=== PATIENT | male | born 1955 | race Caucasian/White ===

== ENCOUNTER 2021-09-25 16:42 | Emergency (ER) | payer OTHER, SELFPAY ==
[2021-09-25] VITALS (8 sets, daily range): BP systolic 105–128; BP diastolic 61–71; PULSE 57–74; RESP 16–27; TEMP 36.2–38.7; O2SAT 86–97; BMI 27.2
--- NOTE | 2021-09-25 17:15 | EDS_ITS ---
HPI History of Present Illness Chief Complaint: Shortness of Breath Informant: patient and family Onset/Context/Timing Onset: Days Context: gradual Timing: Continuous Current Severity: Mild Maximum Severity: Mild Associated Symptoms cough Chest Pain: Positive for None Narrative Narrative: 65-year-old male history of CAD with one cardiac stent also on blood pressure and cholesterol meds. Tested positive for Covid on 09/14 has had symptoms since at least the past 12 to 15 days. He has a nonproductive cough. Fever chills and body aches. No hemoptysis. No chest pain. No history of prior DVT or PE. No recent travel, surgery or immobilization. No calf pain or swelling. Pulse ox is in the 70s and 80s without oxygen. On 3 L he is above 90%. PE Risk Factors: Negative for Cancer, OCP + Smoking + > 35, Prior DVT or PE, Recent immobilization, Recent surgery and Recent travel Prior similar symptoms: No Recent Illness/Hospitalization: No PFSH PFSH Medical History Myocardial infarct Home Medications acetaminophen 1,000 mg PO BID 09/25/21 [History Last Taken 09/25/21] aspirin [Aspir-81] 81 mg PO DAILY 09/25/21 [History Last Taken 09/25/21] atorvastatin 40 mg PO DAILY 09/25/21 [History Last Taken 09/25/21] dexamethasone [Decadron] 6 mg PO DAILY 10 Days #10 tab 09/25/21 [Rx Last Taken Unknown] metoprolol tartrate 12.5 mg PO BID 09/25/21 [History Last Taken 09/25/21] Allergy/AdvReac Type Severity Reaction Status Date / Time No Known Allergies Allergy Verified 09/25/21 16:44 Social History Smoking Status: Never smoker ROS ROS ED ROS Narrative Cough, fever, body aches and chills. Short of breath. Review of Systems ROS Unobtainable: Denies due to encephalopathy Constitutional Constitutional ED: Reports chills and fever(s) Eyes Eyes: Denies change in vision ENT ENT ED: Denies ear pain, rhinorrhea or sore throat Cardiovascular Cardiovascular: Denies chest pain Respiratory/Chest Respiratory/Chest: Reports cough and dyspnea; Denies sputum Gastrointestinal Gastrointestinal: Denies abdominal pain, diarrhea, nausea or vomiting Genitourinary Genitourinary ED: Denies dysuria Musculoskeletal Musculoskeletal: Reports myalgias Integumentary Denies rash Neurologic Neurologic: Denies headache(s) Psychiatric Psychiatric: Denies depression Endocrine Endocrinology: Denies polyuria Hematologic/Lymphatic Hematologic/Lymphatic: Denies easy bruising Allergic/Immunologic Allergic/Immunologic ED: Denies urticaria EXAM Physical Exam Narrative Exam Narrative: C5-year-old male vital signs stable except his pulse ox 86% on room air consistent with hypoxia. On 4 L 92%. H EENT exam unremarkable atraumatic. Dry mucous memories. Neck nontender no JVD no lymphadenopathy. Lungs clear to auscultation bilaterally. Heart regular rhythm rate about 75 no murmur. Abdomen soft nontender normal bowel sounds no peritoneal signs. Moving all 4 extremities. Calves nontender without edema or cords. Neurologically is awake and alert with no focal motor deficits. Const Vital Signs: 09/25/21 16:43 09/25/21 16:45 09/25/21 17:15 Temperature 97.2 F L 97.2 F L Temperature Source Temporal Temporal Pulse Rate 74 68 Respiratory Rate 22 H 21 H Respiratory Effort Respiratory Depth Respiratory Pattern Blood Pressure 116/64 122/66 H Blood Pressure Mean 81 84 Pulse Ox 86 92 95 Oxygen Delivery Method Room Air Nasal Cannula Nasal Cannula Oxygen Flow Rate (L/min) 4 3 Fraction of Inspired Oxygen (FIO2) 09/25/21 17:16 09/25/21 18:46 09/25/21 19:25 Temperature 101.6 F H Temperature Source Temporal Pulse Rate 69 72 Respiratory Rate 18 24 H 27 H Respiratory Effort Short of Breath Respiratory Depth Deep Respiratory Pattern Tachypnea Blood Pressure 128/71 H 113/71 Blood Pressure Mean 90 85 Pulse Ox 95 97 92 Oxygen Delivery Method Nasal Cannula Nasal Cannula Nasal Cannula Oxygen Flow Rate (L/min) 3 3 3 Fraction of Inspired Oxygen (FIO2) 95 Positive well nourished and well developed; Negative for obese, cachectic, contractures or unkempt General Appearance ED: well developed and NAD; Negative for unkempt, cachectic, contractures or pallor Nutritional Appearance: Negative for cachectic or obese HEENT Reports dry mucous membranes; Denies moist mucous membranes atraumatic; Negative for trauma or tenderness Mouth ED: Yes dry mucous membranes Mouth: dry mucous membranes Eyes PERRL and EOMs intact bilaterally Neck no lymphadenopathy, supple, no meningeal signs and no JVD General: Negative for tenderness Resp normal respiratory effort and clear to auscultation bilaterally Auscultation: Negative for rales, rhonchi or wheezes Cardio regular rate, regular rhythm, S1 normal heart sound, S2 normal heart sound and no murmurs GI non-tender, non-distended and no masses Auscultation: normoactive bowel sounds Palpation: soft; Negative for tender or guarding Back/Spine no CVA tenderness and normal to inspection Extremity normal to inspection General Extremety ED: Negative for edema or tenderness General Extremity: Negative for edema Neuro oriented x3 Sensorium / Orientation: oriented to person and oriented to place; Negative for orientation impaired Motor Exam: strength 5/5 throughout Psych mental status grossly normal Appearance: Negative for unkempt Thought Process: normal thought process Skin no wounds General Skin Exam: Negative for jaundice or pallor Lesions: no lesions Rashes: no rashes MDM MDM MDM Narrative Medical decision making narrative: 55-year-old male Covid symptoms for 12 to 15 days. He is unvaccinated. He has been on no therapy. He has received no steroids. He has been on no monoclonal antibody therapy. He is not seen any medical personnel before today. Repeat exam patient is doing well at 8:10 PM. Clinically looks better on the oxygen. He is day 12 through 15 he is not a candidate for monoclonal antibodies to both the timeline and his hypoxia. He and his family member are comfortable with him being discharged home on oxygen which I will have our social media content specialist mayco karla to get that set up. I will start him on daily Decadron. He knows to return if worse. Follow-up with his primary to ensure he is improving. Quarantine. Lab Data Attestation: I reviewed the patient's lab results. Lab results narrative: CBC shows a white count of 5. Hemoglobin 14. Electrolytes show sodium 132 gap of 8 normal BUN and creatinine glucose 116. Labs: Laboratory Results - last 24 hr 09/25/21 09/25/21 17:35 17:35 WBC 5.5 RBC 4.77 Hgb 14.2 Hct 42.1 MCV 88.3 MCH 29.8 MCHC 33.7 RDW Std Deviation 42.3 RDW Coeff of Jimi 13.0 Plt Count 281 MPV 10.8 Immature Gran % (Auto) 0.400 Neut % (Auto) 77.2 H Lymph % (Auto) 15.3 L [place] % (Auto) 6.9 Eos % (Auto) 0.0 Baso % (Auto) 0.2 Absolute Neuts (auto) 4.3 Absolute Lymphs (auto) 0.85 Nucleated RBC % 0 Sodium 132 L Potassium 4.0 Chloride 102 Carbon Dioxide 22.0 Anion Gap 8 BUN 18 Creatinine 0.98 Estim Creat Clear Calc 79.66 Est GFR (MDRD) Af Amer 99 Est GFR (MDRD) Non-Af 82 BUN/Creatinine Ratio 18.3 Glucose 116 H Calcium 8.3 L Radiography Chest X-Ray - ED: 1 View, Read by ED Physician, Normal, Heart, Mediastinum, Bony Structures, Right Infiltrate and Left Infiltrate Diagnostic Testing: Clinical Impression(s) from Imaging Studies Chest X-Ray 09/25/21 17:35 IMPRESSION: 1. Mild to moderate bilateral multifocal pneumonia Electronically Signed: Kavin Mcrae MD at 18:27 EST , Service support , Tray, portable, single view interpreted by myself the radiologist is consistent with bilateral infiltrates consistent with Covid pneumonitis. Discharge Plan Triage Chief Complaint: Shortness of Breath ED Provider: Harjinder Arzate Dx/Rx/DC Orders Clinical Impression: COVID-19, Hypoxia Instructions: Human Coronaviruses Prescriptions: New dexamethasone [Decadron] 6 mg tablet 6 mg PO DAILY 10 Days Qty: 10 RF: 0 No Action atorvastatin 40 mg tablet 40 mg PO DAILY RF: 0 acetaminophen 500 mg Tablet 1,000 mg PO BID RF: 0 metoprolol tartrate 25 mg tablet 12.5 mg PO BID RF: 0 aspirin [Aspir-81] 81 mg Tablet,Delayed Release (Dr/Ec) 81 mg PO DAILY RF: 0 Primary Care Provider: Alex Rivero NP Referrals: Alex Rivero [facility], [facility] [Primary Care Provider] - Activity Restrictions/Additional Instructions: Plenty of fluids and rest. Quarantine next 10 days. Any family members feeling ill should get tested for Covid also. Alternate Tylenol and Motrin for body aches and fever. Daily Decadron for the Covid inflammation in your lungs. Return if feeling worse. Follow-up with your doctor to ensure you are improving. Home oxygen all the time to get better. Disposition Disposition: Home, Self Care
--- NOTE | 2021-09-25 17:35 | RAD_ITS ---
STUDY: X-RAY CHEST REASON FOR EXAM: Male, 65 years old. covid TECHNIQUE: Single AP portable view of the chest. COMPARISON: None. FINDINGS: Moderate patchy consolidation is present in the right upper lobe as well as the lingula of the left upper lobe and throughout the left lower lobe. Mild patchy consolidation is present in the right lower lobe with a trace pleural effusion. There is no demonstrated pleural abnormality. Normal size heart. Normal mediastinum and graciela. Normal visualized pulmonary arteries. Normal visualized aortic arch and descending thoracic aorta. Normal visualized thoracic spine. Normal visualized ribs, clavicles, and shoulders. There is no demonstrated abnormality of the visualized soft tissue structures of the upper abdomen. RAD/Chest 1 View (Portable) IMPRESSION: 1. Mild to moderate bilateral multifocal pneumonia Electronically Signed: Kavin Mcrae MD at 18:27 EST , Service support ,
[2021-09-25] MEDS: dexAMETHasone 10 MG/ML Vial IV (17:44)
[2021-09-25] MEDS: 0.9% Normal Saline 1,000 ML 999 ML IV (17:44)
[2021-09-25 17:46] LABS: Absolute Lymphocyte Count 0.85 X10^3/uL (0.83-4.51); Absolute Neutrophil Count 4.3 X10^3/uL (2.0-7.7); Basophil# 0.01 X10^3/uL; Basophil% 0.2 % (0-1); Hematocrit 42.1 % (40-54); Hemoglobin 14.2 g/dL (13.0-16.5); Lymphocyte # 0.85 X10^3/ul (0.83-4.51); Lymphocyte % 15.3 % (19-41); Mean Corp Hgb Conc 33.7 g/dL (32-36); Mean Corpuscular Hgb 29.8 pg (27.0-32.0); Mean Corpuscular Volume 88.3 fL (80-94); Mean Platelet Vol. 10.8 fl (6.2-12.0); Monocyte# 0.38 X10^3/uL; Monocyte% 6.9 % (0-10); NRBC Flagged by Analyzer 0 % (0-5); Neutrophil # 4.28 X10^3/uL (2.7-7.7); Neutrophil % 77.2 % (47-70); Platelet Count 281 K/mm3 (150-450); RBC Distribution Width SD 42.3 fl (35.1-43.9); Red Blood Count 4.77 M/mm3 (4.6-6.2); White Blood Count 5.5 K/mm3 (4.4-11.0)
[2021-09-25 18:00] LABS: Anion Gap 8 (5-15); BUN 18 mg/dL (7-18); BUN/Creat Ratio 18.3 RATIO (10-20); Calcium,Total 8.3 mg/dL (8.5-10.1); Chloride 102 mmol/L (98-107); Creatinine, Serum 0.98 mg/dL (0.70-1.30); EST Glomerular Filtration Rate 82 mL/min (>60); Est Glom Filt Rate - Afr Amer 99 mL/min (>60); Estimated Creatinine Clearance 79.66 ml/min; Glucose 116 mg/dL (74-106); Sodium Level 132 mmol/L (136-145)
[2021-09-25] MEDS: Acetaminophen 500 MG Tablet 1000 MG PO (18:58)
--- NOTE | 2021-09-25 20:45 | CM.ED ---
Addendum entered by Gege Gonzalez 09/25/21 22:12: FUNMI was advised by staff that since the home oxygen concentrators were not available in the past was there home oxygen concentrators available so this narrative writer called [facility] again and made referral requesting that soil conservationist [facility] call this narrative writer. Barrington from [facility] called this narrative writer. He advised that he will call family. FUNMI met with patient and patient's daughter. They advised Barrington had called and will be in at their house in 1 1/2 hours. Patient discharged home with home oxygen Gege KHANNA Addendum entered by Gege Gonzalez 09/25/21 21:02: Per [facility]'s request FUNMI faxed the discharge paperwork to [facility] fax number.FUNMI reviewed with Ashley Ruffin RN that the max that patient can go home with on home oxygen is 4L. If greater than 4L patient needs to stay inpatient. FUNMI asked MD and he was not familiar with what level of home oxygen is acceptable vs inpatient acute setting. Plan: Home with Home oxygen. Original Note: FUNMI Note Referral Source: MD Referral Reason: Home Oxygen FUNMI faxed referral to [facility]. FUNMI called [facility] and spoke to Jerica about referral. FUNMI sent email to [facility]. No further SW needs at this time. Gege KHANNA
--- NOTE | 2021-09-26 14:55 | CASEMGMT ---
JETT SANZ COVID Home O2 ED follow-up: JETT SANZ completed follow-up phone call after recent hospitalization. Patient states he is doing better. Oxygen was setup without any issues. Patient states he has been wearing oxygen. Sats around 90-91%. Patient was able to fill prescriptions without any issues and taking medication as prescribed. Patient encouraged to schedule follow-up appt.
--- NOTE | 2021-09-27 16:25 | CASEMGMT ---
JETT SANZ COVID Home O2 ED follow-up: JETT ASNZ attempted to complete call. No answer, voice message left with return contact information.
== END 2021-09-25 21:37 | disposition home or self-care (01) ==
PROVIDERS: Emergency Provider Emergency Medicine; PCP Nurse Practitioner Family
DX: U07.1 COVID-19 (principal); J12.82 Pneumonia due to coronavirus disease 2019; R09.02 Hypoxemia; I25.10 Atherosclerotic heart disease of native coronary artery without angina pectoris; I25.2 Old myocardial infarction; Z95.5 Presence of coronary angioplasty implant and graft; Z79.82 Long term (current) use of aspirin; Z79.899 Other long term (current) drug therapy
CPT/HCPCS: 71045; 80048; 85025; 94760; 96361; 96374; 99284; J7030; A4216

== ENCOUNTER 2021-09-30 10:55 | Inpatient (IN) | payer OTHER, SELFPAY ==
[2021-09-30] VITALS (12 sets, daily range): BP systolic 103–119; BP diastolic 62–70; PULSE 48–69; RESP 14–28; TEMP 35.9–36.8; O2SAT 89–95; BMI 26.5; BMI 24.8
--- NOTE | 2021-09-30 11:25 | CT_ITS ---
STUDY: CTA CHEST REASON FOR EXAM: Male, 65 years old. covid 19 pulmonary embolism RADIATION DOSAGE (If Supplied By Facility): CTDIvol = ( 14.70 ) mGy, DLP = ( 556.95 ) mGycm TECHNIQUE: The examination was performed with the intravenous administration of IV 100mL Isovue-370. Post-processing of the angiographic images was performed, with multiplanar reformation and 3D reconstruction. Individualized dose optimization techniques were used for this CT. COMPARISON: 09/25/2021 FINDINGS: Normal enhancement of the main pulmonary artery and right and left pulmonary arteries. Normal enhancement of the bilateral peripheral pulmonary arteries. Multiple filling defects in segmental branches bilaterally consistent with bilateral pulmonary emboli. Normal thoracic aorta and visualized great vessels. There is no demonstrated aortic dissection. Normal heart and pericardium. Normal mediastinum. Normal hilar regions. Normal visualized trachea and bronchi. The lungs are well expanded. Bilateral patchy groundglass opacities consistent with subsegmental atelectasis or pneumonitis. Normal pleura. Normal chest wall structures. Normal osseous structures. Normal visualized upper abdomen. CT/CTA Chest W/WO Contrast IMPRESSION: 1. Positive for bilateral segmental pulmonary emboli. 2. Moderate bilateral subsegmental atelectasis or pneumonitis. Commonly reported imaging features of Covid 19 pneumonia are present. Other processes such as influenza pneumonia and organizing pneumonia as can be seen in drug toxicity and connective tissue disease can cause a similar imaging pattern. Electronically Signed: Alex Herring MD at 13:08 EST Tel , Service support ,
--- NOTE | 2021-09-30 11:26 | EDS_ITS ---
HPI History of Present Illness Chief Complaint: Shortness of Breath Informant: patient and family Narrative Narrative: 65-year-old male presenting to the emergency department with dyspnea. Patient became ill with COVID-19 on 12 September. He was seen in the emergency room on the . At that time he was started on home oxygen of 4 L and given Decadron. Family notes that his mental status is significantly improved over the past few days. Unfortunately his oxygen saturations are dropping into the 70s with any type of movement around the house. He denies any chest pain. Notes history of coronary artery disease. Not Covid vaccinated. [facility] Medical History (Updated 09/30/21 @ 14:10 by Ed MCKEON) COVID HTN (hypertension) Myocardial infarct Home Medications acetaminophen 1,000 mg PO BID 09/25/21 [History Last Taken 09/25/21] aspirin [Aspir-81] 81 mg PO DAILY 09/25/21 [History Last Taken 09/25/21] atorvastatin 40 mg PO DAILY 09/25/21 [History Last Taken 09/25/21] dexamethasone [Decadron] 6 mg PO DAILY 10 Days #10 tab 09/25/21 [Rx Last Taken Unknown] metoprolol tartrate 12.5 mg PO BID 09/25/21 [History Last Taken 09/25/21] ibuprofen [Motrin] 600 mg PO BID PRN 09/30/21 [History Last Taken Unknown] Allergy/AdvReac Type Severity Reaction Status Date / Time No Known Allergies Allergy Verified 09/30/21 10:56 Family History (Updated 09/30/21 @ 14:11 by Ed MCKEON) Father Cancer Colon cancer Mother Diabetes Heart disease Surgical History (Updated 09/30/21 @ 14:12 by Ed MCKEON) History of cardiac catheterization Social History (Updated 09/30/21 @ 14:13 by Ed MCKEON) current gender identity: male Smoking Status: Current some day smoker tobacco type: cigarettes Smoking packs per day: 1 Smoking cigarettes per day: 20.0 Years smoked: 45 Smoking pack-years: 45.00 alcohol intake: current alcohol intake frequency: 3 or more drinks per day Alcohol type: beer ROS ROS ED Constitutional Constitutional ED: Denies chills, fever(s) or weight loss Eyes Eyes: Denies change in vision or diplopia ENT ENT ED: Denies ear pain, rhinorrhea or sore throat Cardiovascular Cardiovascular: Denies chest pain, orthopnea, palpitations or racing heartbeat Respiratory/Chest Respiratory/Chest: Reports cough, dyspnea and dyspnea on exertion; Denies orthopnea Gastrointestinal Gastrointestinal: Denies abdominal pain, diarrhea, nausea or vomiting Genitourinary Genitourinary ED: Denies dysuria, hematuria or urinary frequency Musculoskeletal Musculoskeletal: Denies arthralgias or myalgias Integumentary Denies abscess or rash Neurologic Neurologic: Denies headache(s) or weakness Psychiatric Psychiatric: Denies anxiety, depression, suicidal ideation or suicidal thoughts Endocrine Endocrinology: Denies polydipsia, polyphagia or polyuria Allergic/Immunologic Allergic/Immunologic ED: Denies mouth swelling, tongue swelling or urticaria EXAM Physical Exam Const Vital Signs: 09/30/21 10:56 09/30/21 11:08 09/30/21 11:09 Temperature 96.6 F L Temperature Source Temporal Pulse Rate 53 L 52 L Respiratory Rate 14 28 H Blood Pressure 112/70 Blood Pressure Mean 84 Pulse Ox 89 89 93 Oxygen Delivery Method Nasal Cannula Nasal Cannula Nasal Cannula Oxygen Flow Rate (L/min) 4 4 5 09/30/21 11:31 09/30/21 11:39 09/30/21 13:13 Temperature 96.6 F L Temperature Source Temporal Pulse Rate 51 L 48 L Respiratory Rate 26 H 24 H Blood Pressure 103/67 114/66 Blood Pressure Mean 79 82 Pulse Ox 93 92 Oxygen Delivery Method Nasal Cannula Nasal Cannula Nasal Cannula Oxygen Flow Rate (L/min) 5 5 5 Positive well nourished and well developed; Negative for obese General Appearance ED: well developed Nutritional Appearance: Negative for obese HEENT Reports normocephalic, head/scalp atraumatic, TM's clear and moist mucous membranes Negative for trauma Tympanic Membrane ED: Yes TM's clear Eyes PERRL and EOMs intact bilaterally Neck no lymphadenopathy, supple and no JVD Resp clear to auscultation bilaterally Resp Narrative: Patient is tachypneic Cardio regular rate and no murmurs Rate: bradycardia GI normal to inspection, nondistended, normoactive bowel sounds and non-tender Palpation: soft Back/Spine no CVA tenderness and normal ROM Extremity normal to inspection General Extremety ED: Negative for edema General Extremity: Negative for edema Neuro oriented x3 and CN's II-XII intact bilaterally Sensorium / Orientation: alert Motor Exam: strength 5/5 throughout Psych mental status grossly normal Mood & Affect: Negative for depressed or tearful Skin no rashes or lesions noted and no wounds MDM MDM MDM Narrative Medical decision making narrative: Basic blood work was obtained which shows elevation of his liver enzymes. Patient does drink quite a bit of alcohol and family states that they think that he probably had some withdrawal over the past week since he has not been drinking. His CTA of his chest is positive for bilateral pulmonary embolisms. Currently requiring 6 L nasal cannula. Plan is admission into the hospital. Lab Data Attestation: I reviewed the patient's lab results. Labs: Laboratory Results - last 24 hr 09/30/21 09/30/21 09/30/21 11:40 11:40 11:40 WBC 13.3 H RBC 4.67 Hgb 14.2 Hct 41.2 MCV 88.2 MCH 30.4 MCHC 34.5 RDW Std Deviation 42.6 RDW Coeff of Jimi 13.2 Plt Count 120 L MPV 12.1 H Immature Gran % (Auto) 4.700 H Neut % (Auto) 77.9 H Lymph % (Auto) 6.8 L [place] % (Auto) 10.0 Eos % (Auto) 0.2 Baso % (Auto) 0.4 Absolute Neuts (auto) 10.4 H Absolute Lymphs (auto) 0.90 Nucleated RBC % 0.2 PT 15.8 H INR 1.3 APTT 31.4 Sodium 139 Potassium 4.4 Chloride 109 H Carbon Dioxide 25.0 Anion Gap 5 BUN 22 H Creatinine 0.70 Estim Creat Clear Calc 111.53 Est GFR (MDRD) Af Amer 147 Est GFR (MDRD) Non-Af 121 BUN/Creatinine Ratio 31.6 H Glucose 105 Calcium 8.6 Total Bilirubin 1.30 H AST 220 H ALT 262 H Alkaline Phosphatase 155 H Troponin I High Sens 45 Total Protein 5.8 L Albumin 2.2 L Globulin 3.6 Albumin/Globulin Ratio 0.6 L Radiography Diagnostic Testing: Clinical Impression(s) from Imaging Studies Chest CTA 09/30/21 11:25 IMPRESSION: 1. Positive for bilateral segmental pulmonary emboli. 2. Moderate bilateral subsegmental atelectasis or pneumonitis. Commonly reported imaging features of Covid 19 pneumonia are present. Other processes such as influenza pneumonia and organizing pneumonia as can be seen in drug toxicity and connective tissue disease can cause a similar imaging pattern. Electronically Signed: Alex Herring MD at 13:08 EST Tel , Service support , EKG Initial EKG: Attestation: I personally reviewed and interpreted this EKG as follows: Discharge Plan Dx/Rx/DC Orders Clinical Impression: COVID-19, Hypoxia, Pulmonary embolism Disposition Disposition: Acute Care Hospital [facility] Discharge Date/Time: 09/30/21 14:19
[2021-09-30 11:53] LABS: Absolute Neutrophil Count 10.4 X10^3/uL (2.0-7.7); Basophil# 0.05 X10^3/uL; Basophil% 0.4 % (0-1); Eosinophil# 0.02 X10^3/uL; Eosinophils% 0.2 % (0-5); Hematocrit 41.2 % (40-54); Hemoglobin 14.2 g/dL (13.0-16.5); Lymphocyte % 6.8 % (19-41); Mean Corp Hgb Conc 34.5 g/dL (32-36); Mean Corpuscular Hgb 30.4 pg (27.0-32.0); Mean Corpuscular Volume 88.2 fL (80-94); Mean Platelet Vol. 12.1 fl (6.2-12.0); Monocyte# 1.33 X10^3/uL; NRBC Flagged by Analyzer 0.2 % (0-5); Neutrophil # 10.39 X10^3/uL (2.7-7.7); Neutrophil % 77.9 % (47-70); Platelet Count 120 K/mm3 (150-450); RBC Distribution Width CV 13.2 % (11.6-14.6); RBC Distribution Width SD 42.6 fl (35.1-43.9); Red Blood Count 4.67 M/mm3 (4.6-6.2); White Blood Count 13.3 K/mm3 (4.4-11.0)
[2021-09-30 12:03] LABS: ALB/GLOB Ratio 0.6 RATIO (0.9-2.4); AST(SGOT) 220 U/L (15-37); Alanine Aminotransfer ALT/SGPT 262 U/L (16-61); Albumin, Serum 2.2 g/dL (3.2-5.0); Alkaline Phosphatase 155 U/L (45-117); Anion Gap 5 (5-15); BUN 22 mg/dL (7-18); BUN/Creat Ratio 31.6 RATIO (10-20); Calcium,Total 8.6 mg/dL (8.5-10.1); Chloride 109 mmol/L (98-107); EST Glomerular Filtration Rate 121 mL/min (>60); Est Glom Filt Rate - Afr Amer 147 mL/min (>60); Estimated Creatinine Clearance 111.53 ml/min; Globulin 3.6 g/dL (2.2-4.2); Glucose 105 mg/dL (74-106); Potassium 4.4 mmol/L (3.5-5.1); Protein, Total 5.8 g/dL (6.4-8.2); Sodium Level 139 mmol/L (136-145); Troponin-I HS 45 pg/mL (3.0-78.0)
--- NOTE | 2021-09-30 12:53 | ED.RN ---
MD aware that daughter informed nurse that pt is an alcoholic but has not been drinking since having COVID. not agitated today.
--- NOTE | 2021-09-30 13:27 | ECHOD_ITS ---
Reason For Study: dyspnea/sob Procedure This was a 2D Doppler, Color Flow transthoracic echocardiogram. The study was technically difficult. PT would not lie in left lateral decubitus position for imaging. Exam performed portable in patient room. The exam was abbreviated due to the COVID 19 protocol. Left Ventricle Normal LV size. Left ventricular systolic function is normal. The estimated ejection fraction is 55 %. No regional wall motion abnormalities noted. Right Ventricle Normal RV size. Normal systolic function. Atria The left atrium is mildly enlarged. Normal right atrium. Mitral Valve Normal mitral valve. Tricuspid Valve Normal tricuspid valve. Mild (1+) tricuspid valve insufficiency. Pulmonary artery systolic pressure is 36 mmHg. Aortic Valve Trisinus/trileaflet aortic valve. Pulmonic Valve The pulmonic valve is not well visualized. Great Vessels Normal aortic root. Pericardium/Pleural No pericardial effusion. MMode/2D Measurements & Calculations LVIDd: 5.2 cm IVSd: 1.2 cm Ao root diam: 3.5 cm LVIDs: 3.3 cm LVPWd: 1.1 cm RVDd: 3.4 cm FS: 37.3 % LAV(MOD-bp): 80.8 ml LA A4 area: 23.2 cm2 LA dimension(2D): 4.2 cm LAV(MOD-bp) Indexed: 41.2 ml/m2 LAV(MOD-sp2): 78.0 ml LAV(MOD-sp4): 81.7 ml RA A4 area: 15.3 cm2 Doppler Measurements & Calculations PA V2 max: 119.2 cm/sec TR max aisha: 283.4 cm/sec TR max P.1 mmHg ECHO/Echo Complete Interpretation Summary Normal LV size. Left ventricular systolic function is normal. The estimated ejection fraction is 55 %. Pulmonary artery systolic pressure is 36 mmHg. Ordering Physician: Ed Holliday Referring Physician: Mat Performed By: Amy De Jesus RDCS, RVT
--- NOTE | 2021-09-30 13:32 | EKG12_ITS ---
Test Reason : SOB Blood Pressure : / mmHG Vent. Rate : 054 BPM Atrial Rate : 054 BPM P-R Int : 136 ms QRS Dur : 098 ms QT Int : 496 ms P-R-T Axes : 052 -07 -09 degrees QTc Int : 470 ms Sinus bradycardia Otherwise normal ECG Confirmed by OLIVERIO BURCH, ROULA ([id number]), web editor CARMELA SERVIN ([id number]) on 10/02/2021 10:02:54 AM Referred By: ASHLEY Confirmed By:ROULA DURON MD
--- NOTE | 2021-09-30 14:02 | PCM.HP.STD ---
Documented by User: Ed MCKEON 09/30/21 14:30 HPI - General General Date of Admission: 09/30/21 Date of Service: 09/30/21 Chief Complaint: Shortness of breath HPI Narrative PEDRITO CONNER is a 65-year-old male who presents to the ED at [facility] on 09/30/2021 with a chief complaint of shortness of breath and hypoxia in the setting of recent COVID-19 infection. Patient was initially diagnosed with COVID-19 on September 12, 2021, however was initially managing his symptoms at home. Patient was subsequently seen on September 25, 2021 in the [facility] emergency room where he was placed on oxygen at 4 L via nasal cannula and initiated on Decadron. Patient reports that over the past month he has been experiencing arthralgias, myalgias, fever, chills, N/V/D and constant shortness of breath. Patient denies any purulent sputum production or chest pain. Patient reports today stating that his constitutional symptoms have more or less resolved, however his shortness of breath is still constant. Patient presents to the ED on urging from his daughter after he was observed having oxygen saturations down to the low 70s on home oxygen prescription. Patient vital signs in the ED were temperature of 96.6 ?F, HR of 51, BP of 114/66, RR of 26 and patient was satting at 93% on 5 L via nasal cannula. CBC demonstrates mildly elevated WBCs at 13.3, hemoglobin 14.2 and platelets at 120,000. CMP shows sodium 139, potassium 4.4, creatinine is 0.7, AST of 220, ALT of 262 and alk phos at 155. Chest x-ray demonstrates mild to moderate bilateral multifocal pneumonia. CTA of the chest was POSITIVE for bilateral segmental pulmonary emboli, and mild to moderate segmental atelectasis or pneumonitis consistent with COVID-19 infection. PFSH Medical History Chest pain Coronary artery disease COVID HTN (hypertension) Myocardial infarct Smoker Home Medications acetaminophen 1,000 mg PO BID 09/25/21 [History Last Taken 09/25/21] aspirin [Aspir-81] 81 mg PO DAILY 09/25/21 [History Last Taken 09/25/21] atorvastatin 40 mg PO DAILY 09/25/21 [History Last Taken 09/25/21] dexamethasone [Decadron] 6 mg PO DAILY 10 Days #10 tab 09/25/21 [Rx Last Taken Unknown] metoprolol tartrate 12.5 mg PO BID 09/25/21 [History Last Taken 09/25/21] ibuprofen [Motrin] 600 mg PO BID PRN 09/30/21 [History Last Taken Unknown] Allergy/AdvReac Type Severity Reaction Status Date / Time No Known Allergies Allergy Verified 09/30/21 10:56 Family History (Updated 09/30/21 @ 14:11 by Ed MCKEON) Father Cancer Colon cancer Mother Diabetes Heart disease Surgical History (Updated 09/30/21 @ 14:56 by Margarito Forbes) History of cardiac catheterization History of coronary artery stent placement Social History (Updated 09/30/21 @ 14:13 by Ed MCKEON) current gender identity: male Smoking Status: Current some day smoker tobacco type: cigarettes Smoking packs per day: 1 Smoking cigarettes per day: 20.0 Years smoked: 45 Smoking pack-years: 45.00 alcohol intake: current alcohol intake frequency: 3 or more drinks per day Alcohol type: beer ROS Constitutional Constitutional: Denies anorexia, change in weight, chills, fatigue, fever(s), malaise, night sweats, weakness or other Eyes Eyes: Denies blurry vision, change in eye color, change in vision, discharge from eye(s), double vision, erythema, eye pain, loss of vision or other ENT HEENT: Denies abnormal hearing, dysphagia, ear pain, epistaxis, headache(s), hearing loss, nasal congestion, nasal discharge, post nasal drip, sinus pressure, sore throat or other Cardiovascular Cardiovascular: Reports dyspnea on exertion; Denies chest pain, claudication, edema, lightheadedness, orthopnea, palpitations, paroxysmal nocturnal dyspnea, rapid heart rate, syncope or other Respiratory/Chest Respiratory/Chest: Reports dyspnea, hemoptysis, shortness of breath at rest and shortness of breath with exertion; Denies cough, excessive phlegm production, productive cough, wheezing or other Gastrointestinal Gastrointestinal: Denies abdominal pain, coffee ground emesis, constipation, diarrhea, dyspepsia, hematemesis, hematochezia, loose stools, melena, nausea, vomiting or other Genitourinary Genitourinary: Denies burning urination, difficulty urinating, dysuria, hematuria, nocturia, urinary frequency, urinary hesitancy, urinary incontinence, urinary urgency or other Musculoskeletal Musculoskeletal: Denies arthralgias, back pain, joint pain, joint stiffness, joint swelling, myalgias, neck pain or other Neurologic Neurologic: Denies abnormal gait, abnormal speech, confusion, disequilibrium, dizziness, focal weakness, headache(s), numbness, paresthesias, seizure-like activity, seizures, syncope, tingling, tremor(s) or other Psychiatric Psychiatric: Denies anxiety, depression, homicidal ideation, suicidal ideation or other Endocrine Endocrinology: Denies change in body appearance, cold intolerance, excessive sweating, heat intolerance, polydipsia, polyuria or other Hematologic/Lymphatic Hematologic/Lymphatic: Denies anemia, easy bleeding, easy bruising, lymphadenopathy or other Allergic/Immunologic Allergic/Immunologic: Denies rhinitis, hives, eczemia, asthma or other Vital Signs Vital Signs Vital Signs: 09/30/21 10:56 09/30/21 11:08 09/30/21 11:09 Temperature 96.6 F L Temperature Source Temporal Pulse Rate 53 L 52 L Respiratory Rate 14 28 H Blood Pressure 112/70 Blood Pressure Mean 84 Pulse Ox 89 89 93 Oxygen Delivery Method Nasal Cannula Nasal Cannula Nasal Cannula Oxygen Flow Rate (L/min) 4 4 5 09/30/21 11:31 09/30/21 11:39 09/30/21 13:13 Temperature 96.6 F L Temperature Source Temporal Pulse Rate 51 L 48 L Respiratory Rate 26 H 24 H Blood Pressure 103/67 114/66 Blood Pressure Mean 79 82 Pulse Ox 93 92 Oxygen Delivery Method Nasal Cannula Nasal Cannula Nasal Cannula Oxygen Flow Rate (L/min) 5 5 5 Weight Weight: 185 lb Body Mass Index (BMI) 26.5 Physical Exam Const alert, oriented x3 and no apparent distress General Appearance: cooperative HEENT normocephalic, head/scalp atraumatic, hearing grossly normal bilaterally and moist oral mucous membranes Eyes PERRL, EOMs intact bilaterally and conjunctivae normal Neck no lymphadenopathy, supple and no JVD Resp Effort and Inspection: tachypneic, respiratory distress and labored Auscultation: diminished lung sounds Cardio regular rhythm, no murmurs and no JVD Rate: tachycardic GI normal to inspection, nondistended, normoactive bowel sounds, soft to palpation and non-tender Extremity normal to inspection and no clubbing, cyanosis or edema Skin no rashes or lesions noted, no wounds, skin turgor normal and no jaundice Neuro CN's II-XII intact bilaterally Psych affect normal Results Lab / Micro Data Result Diagrams: 09/30/21 11:40 09/30/21 11:40 Labs: Laboratory Results - last 24 hr 09/30/21 11:40: WBC 13.3 H, RBC 4.67, Hgb 14.2, Hct 41.2, MCV 88.2, MCH 30.4, MCHC 34.5, RDW Std Deviation 42.6, RDW Coeff of Jimi 13.2, Plt Count 120 L, MPV 12.1 H, Immature Gran % (Auto) 4.700 H, Neut % (Auto) 77.9 H, Lymph % (Auto) 6.8 L, [place] % (Auto) 10.0, Eos % (Auto) 0.2, Baso % (Auto) 0.4, Absolute Neuts (auto) 10.4 H, Absolute Lymphs (auto) 0.90, Nucleated RBC % 0.2 09/30/21 11:40: Sodium 139, Potassium 4.4, Chloride 109 H, Carbon Dioxide 25.0, Anion Gap 5, BUN 22 H, Creatinine 0.70, Estim Creat Clear Calc 111.53, Est GFR (MDRD) Af Amer 147, Est GFR (MDRD) Non-Af 121, BUN/Creatinine Ratio 31.6 H, Glucose 105, Calcium 8.6, Total Bilirubin 1.30 H, AST 220 H, ALT 262 H, Alkaline Phosphatase 155 H, Troponin I High Sens 45, Total Protein 5.8 L, Albumin 2.2 L, Globulin 3.6, Albumin/Globulin Ratio 0.6 L Radiology Impression Chest CTA 09/30/21 11:25 IMPRESSION: 1. Positive for bilateral segmental pulmonary emboli. 2. Moderate bilateral subsegmental atelectasis or pneumonitis. Commonly reported imaging features of Covid 19 pneumonia are present. Other processes such as influenza pneumonia and organizing pneumonia as can be seen in drug toxicity and connective tissue disease can cause a similar imaging pattern. Electronically Signed: Alex Herring MD at 13:08 EST Tel , Service support , Assessment & Plan Assessment/Plan (1) Pulmonary embolism: (2) COVID-19: PLAN: Patient is a 65-year-old male who presents to the ED at [facility] on 09/30/2021 with a chief complaint of shortness of breath in the setting of recent COVID-19 infection. Patient will be admitted for evaluation and management of pulmonary embolism. 1) acute hypoxic respiratory failure secondary pulmonary emboli in the setting of recent COVID-19 infection Presents to the ED with hypoxia and shortness of breath. Has had COVID-19 since September 12, 2021, was placed on oxygen and Decadron from the [facility] ED on 09/25/2021. CT-A of the chest demonstrates bilateral segmental pulmonary embolus. Vital signs demonstrate tachypnea and hypoxia with oxygen saturations at 89% on 4 L, which is patient's home oxygen prescription. Plan; admit to PCU, initiate heparin drip, obtain duplex ultrasound of the lower extremities bilaterally, CBC and CMP in a.m., as needed medications ordered, initiate Decadron, enhanced droplet precautions ordered, O2 per protocol, encourage incentive spirometry, obtain echocardiogram. 2) symptomatic COVID-19 infection Patient's had Covid since September 12 as noted above. Has been managing at home except for recent ED visit on 09/25/2021 where patient was placed on Decadron and sent home on home O2 at 4 L via nasal cannula. Will not initiate remdesivir due to prolonged course of COVID-19 infection. Plan; as above, initiate Decadron, enhance COVID-19 droplet precautions ordered. 3) CAD status post stent Patient had STEMI with stent placed in 2017. Follows with biology professor in [place]. Plan; obtain echocardiogram as above, continue metoprolol, aspirin and statin. DVT prophylaxis - not indicated, on therapeutic anticoagulation for #1. CODE STATUS: Full code Patient seen by Ed Holliday PA-C, under the supervision of Dr. Lombardo. Documented by User: Dr. Sylwia Lombardo MD 09/30/21 18:03 HPI - General General Date of Admission: 09/30/21 [facility] Medical History Chest pain Coronary artery disease COVID HTN (hypertension) Myocardial infarct Smoker Home Medications acetaminophen 1,000 mg PO BID 09/25/21 [History Last Taken 09/25/21] aspirin [Aspir-81] 81 mg PO DAILY 09/25/21 [History Last Taken 09/25/21] atorvastatin 40 mg PO DAILY 09/25/21 [History Last Taken 09/25/21] dexamethasone [Decadron] 6 mg PO DAILY 10 Days #10 tab 09/25/21 [Rx Last Taken Unknown] metoprolol tartrate 12.5 mg PO BID 09/25/21 [History Last Taken 09/25/21] ibuprofen [Motrin] 600 mg PO BID PRN 09/30/21 [History Last Taken Unknown] Allergy/AdvReac Type Severity Reaction Status Date / Time No Known Allergies Allergy Verified 09/30/21 10:56 Family History (Updated 09/30/21 @ 14:11 by Ed MCKEON) Father Cancer Colon cancer Mother Diabetes Heart disease Surgical History (Updated 09/30/21 @ 14:56 by Margarito Forbes) History of cardiac catheterization History of coronary artery stent placement Social History (Updated 09/30/21 @ 14:13 by Ed MCKEON) current gender identity: male Smoking Status: Current some day smoker tobacco type: cigarettes Smoking packs per day: 1 Smoking cigarettes per day: 20.0 Years smoked: 45 Smoking pack-years: 45.00 alcohol intake: current alcohol intake frequency: 3 or more drinks per day Alcohol type: beer Results Lab / Micro Data Result Diagrams: 09/30/21 11:40 09/30/21 11:40 Charges/Coding Addendum Addendum: This patient was seen in conjunction with MIKE Rasheed. I have independently interviewed and examined the patient and reviewed pertinent historical, laboratory, and other data. Please refer to MIKE Rasheed's note for his patient's presentation, findings, and recommendations. I have reviewed and his note and concur with his documentation 65-year-old male past medical history of hypertension, hyperlipidemia who comes in with progressive shortness of breath. Patient was recently diagnosed with acute COVID-19 infection on September 12. He was noted by his daughter who is a nurse to be progressively short of breath and hypoxic at home. In the ED, he required 4 L of oxygen. Work-up was significant for acute bilateral PE. Patient denied any chest pain or dizziness or palpitation. Physical Exam: Gen: Comfortable, not pale, not jaundiced, on 4 L of oxygen CVS:HS I +II, regular, no murmurs RESP: Diminished at lung bases GI: BS present and normal, soft, nontender, no palpable organs EXT: Bilateral leg edema +1 ASSESSMENT: 1. Acute hypoxic respiratory failure secondary to Acute bilateral PE/COVID-19 pneumonia 2. Acute bilateral PE 3. Leucocytosis 4. Elevated LFTs Plan: Continue on heparin drip Continue on Dexamethasone Continue to wean off oxygen 2d-Echo Doppler USG of bilateral legs Visit Charges Inpatient E&M: 24988 Init Hosp L3 Procedures Hospitalists Procedures: 14901 Advncd Care Plan 30 Min
[2021-09-30 14:15] LABS: International Normalized Ratio 1.3; Prothrombin Time (Protime)PT. 15.8 SECONDS (11.7-14.9)
[2021-09-30 14:16] LABS: Partial Thromboplast Time 31.4 Seconds (24.1-36.2)
--- NOTE | 2021-09-30 14:43 | PCS.PANDOC ---
PANDEMIC DOCUMENTATION INITIATED: Date: 05/21/2021 Time: 190
--- NOTE | 2021-09-30 15:32 | CPS ---
SMI and smoking completed per nursing instructions.
[2021-09-30] MEDS: HEPARIN/D5w 25,000 UNITS 25,000 UNITS/250 ML IV.SOLN. 12 UNITS IV (15:38)
[2021-09-30] MEDS: dexAMETHasone 4 MG Tablet 6 MG PO (15:39)
[2021-09-30] MEDS: Heparin Injection (Vial) 5,000 UNIT/ML VIAL 6000 UNIT IV (15:39)
[2021-09-30] MEDS: Furosemide 40 MG/4 ML Vial IV (18:18)
[2021-09-30] MEDS: 0.9% Saline Lock 10 ML Syringe IV (18:20)
[2021-09-30] MEDS: Atorvastatin Calcium 40 MG Tablet PO (20:52)
[2021-09-30] MEDS: Metoprolol Tartrate 25 MG Tablet 12.5 MG PO (20:53)
--- NOTE | 2021-09-30 22:19 | NURSING ---
Pts primary rn aware of ptt of 187 at this time.
[2021-10-01] VITALS (14 sets, daily range): BP systolic 115–142; BP diastolic 49–67; PULSE 51–76; RESP 16–20; TEMP 36.1–36.9; O2SAT 90–96
[2021-10-01 07:07] LABS: Hematocrit 40.4 % (40-54); Hemoglobin 13.6 g/dL (13.0-16.5); Mean Corp Hgb Conc 33.7 g/dL (32-36); Mean Corpuscular Hgb 29.9 pg (27.0-32.0); Mean Corpuscular Volume 88.8 fL (80-94); Mean Platelet Vol. 12.3 fl (6.2-12.0); POSITIVE COUNT YES; POSITIVE MORPHOLOGY YES; Platelet Count 170 K/mm3 (150-450); RBC Distribution Width CV 13.2 % (11.6-14.6); RBC Distribution Width SD 42.6 fl (35.1-43.9); Red Blood Count 4.55 M/mm3 (4.6-6.2); White Blood Count 13.5 K/mm3 (4.4-11.0)
[2021-10-01 07:10] LABS: Differential Indicated MANUAL DIFF
[2021-10-01 07:21] LABS: Partial Thromboplast Time 75.9 Seconds (24.1-36.2)
[2021-10-01 07:36] LABS: ALB/GLOB Ratio 0.6 RATIO (0.9-2.4); AST(SGOT) 130 U/L (15-37); Alanine Aminotransfer ALT/SGPT 225 U/L (16-61); Albumin, Serum 2.2 g/dL (3.2-5.0); Alkaline Phosphatase 147 U/L (45-117); Anion Gap 5 (5-15); BUN 21 mg/dL (7-18); BUN/Creat Ratio 28.3 RATIO (10-20); Calcium,Total 8.7 mg/dL (8.5-10.1); Chloride 103 mmol/L (98-107); Creatinine, Serum 0.74 mg/dL (0.70-1.30); EST Glomerular Filtration Rate 113 mL/min (>60); Est Glom Filt Rate - Afr Amer 137 mL/min (>60); Globulin 3.7 g/dL (2.2-4.2); Glucose 177 mg/dL (74-106); Potassium 4.6 mmol/L (3.5-5.1); Protein, Total 5.9 g/dL (6.4-8.2); Sodium Level 137 mmol/L (136-145)
[2021-10-01 07:57] LABS: Lymphocyte 14 % (19-41); Monocyte 11 % (0-10); Neutrophil-Band 2 % (0-5); Neutrophil-Segmented 73 % (47-70); Total Cells Counted 100 (MANUAL DIFF)
[2021-10-01 07:58] LABS: Platelet Estimate ADEQUATE (ADEQ); Red Cell Morphology NORM C+C NORMAL (NORM C&C)
[2021-10-01 08:00] LABS: Absolute Lymphocyte Count 1.89 X10^3/uL (0.83-4.51); Absolute Neutrophil Count 10.1 X10^3/uL (2.0-7.7)
[2021-10-01] MEDS: dexAMETHasone 4 MG Tablet 6 MG PO (08:55)
[2021-10-01] MEDS: Aspirin E.C. 81 MG Tablet PO (08:55)
--- NOTE | 2021-10-01 11:32 | PN.HOSP_ITS ---
Documented by User: Ed MCKEON 10/01/21 11:43 Subjective Subjective Patient is a 65-year-old male comfortably resting in bed, alert and orient x3. Patient reports that his shortness of breath is mildly improved from yesterday. Denies development of any new symptoms overnight. Does not appear in acute distress. Objective Data Objective Data Vital Signs: Vital Signs Temp Pulse Resp BP Pulse Ox 97.4 F L 51 L 20 H 129/67 H 96 10/01/21 08:50 10/01/21 08:50 10/01/21 08:50 10/01/21 08:50 10/01/21 08:50 Oxygen Flow Rate (L/min) 6 Oxygen Delivery Method Nasal Cannula Weight: 173 lb 1.006 oz Body Mass Index (BMI) 24.8 Intake & Output: Intake and Output for Last 24 Hours 09/29/21 09/30/21 10/01/21 23:59 23:59 23:59 Intake Total 560.6 / 860.6 700 / 700 Output Total 300 / 300 Balance 560.6 / 860.6 400 / 400 Lab / Micro Data Result Diagrams: 10/01/21 06:50 10/01/21 06:50 Labs: Laboratory Results - last 24 hr 09/30/21 11:40: WBC 13.3 H, RBC 4.67, Hgb 14.2, Hct 41.2, MCV 88.2, MCH 30.4, MCHC 34.5, RDW Std Deviation 42.6, RDW Coeff of Jimi 13.2, Plt Count 120 L, MPV 12.1 H, Immature Gran % (Auto) 4.700 H, Neut % (Auto) 77.9 H, Lymph % (Auto) 6.8 L, [place] % (Auto) 10.0, Eos % (Auto) 0.2, Baso % (Auto) 0.4, Absolute Neuts (auto) 10.4 H, Absolute Lymphs (auto) 0.90, Nucleated RBC % 0.2 09/30/21 11:40: Sodium 139, Potassium 4.4, Chloride 109 H, Carbon Dioxide 25.0, Anion Gap 5, BUN 22 H, Creatinine 0.70, Estim Creat Clear Calc 111.53, Est GFR (MDRD) Af Amer 147, Est GFR (MDRD) Non-Af 121, BUN/Creatinine Ratio 31.6 H, Glucose 105, Calcium 8.6, Total Bilirubin 1.30 H, AST 220 H, ALT 262 H, Alkaline Phosphatase 155 H, Troponin I High Sens 45, Total Protein 5.8 L, Albumin 2.2 L, Globulin 3.6, Albumin/Globulin Ratio 0.6 L 09/30/21 11:40: PT 15.8 H, INR 1.3, APTT 31.4 09/30/21 21:38: APTT 187.0 H* 10/01/21 06:50: WBC 13.5 H, RBC 4.55 L, Hgb 13.6, Hct 40.4, MCV 88.8, MCH 29.9, MCHC 33.7, RDW Std Deviation 42.6, RDW Coeff of Jimi 13.2, Plt Count 170, MPV 12.3 H, Neut % (Auto) Not Reportable, Absolute Neuts (auto) 10.1 H, Absolute Lymphs (auto) 1.89, Total Counted 100, Neutrophils % (Manual) 73 H, Band Neutrophils % 2, Lymphocytes % (Manual) 14 L, Monocytes % (Manual) 11 H, Diff Path Review February, Platelet Estimate ADEQUATE, RBC Morphology NORM C+C 10/01/21 06:50: Sodium 137, Potassium 4.6, Chloride 103, Carbon Dioxide 29.0, Anion Gap 5, BUN 21 H, Creatinine 0.74, Estim Creat Clear Calc 105.50, Est GFR (MDRD) Af Amer 137, Est GFR (MDRD) Non-Af 113, BUN/Creatinine Ratio 28.3 H, Glucose 177 H, Calcium 8.7, Total Bilirubin 0.70, AST 130 H, ALT 225 H, Alkaline Phosphatase 147 H, Total Protein 5.9 L, Albumin 2.2 L, Globulin 3.7, Albumin/Globulin Ratio 0.6 L 10/01/21 06:50: APTT 75.9 H Radiography Diagnostic Testing: Radiology Impression Chest CTA 09/30/21 11:25 IMPRESSION: 1. Positive for bilateral segmental pulmonary emboli. 2. Moderate bilateral subsegmental atelectasis or pneumonitis. Commonly reported imaging features of Covid 19 pneumonia are present. Other processes such as influenza pneumonia and organizing pneumonia as can be seen in drug toxicity and connective tissue disease can cause a similar imaging pattern. Electronically Signed: Alex Herring MD at 13:08 EST Tel , Service support , Physical Exam Const alert, oriented x3 and no apparent distress HEENT head/scalp atraumatic and moist oral mucous membranes Head and Scalp: normocephalic Eyes PERRL, EOMs intact bilaterally and conjunctivae normal Neck no lymphadenopathy, supple and no JVD Resp normal respiratory effort, normal air movement and no retractions Auscultation: diminished lung sounds Cardio regular rhythm, no murmurs and no JVD Rate: bradycardia GI normal to inspection, nondistended, normoactive bowel sounds, soft to palpation and non-tender Extremity normal to inspection, full ROM and no clubbing, cyanosis or edema Skin no rashes or lesions noted, no wounds, skin turgor normal and no petechiae Neuro CN's II-XII intact bilaterally Psych affect normal Assessment & Plan Assessment/Plan (1) Pulmonary embolism: (2) COVID-19: PLAN: Day 1 Discharge planning: Patient to be discharged home when medically ready. 1) acute hypoxic respiratory failure secondary pulmonary emboli in the setting of recent COVID-19 infection Patient reports mild improvement in his shortness of breath from admission. Still requiring 6 L of oxygen to sat at 96%. Patient home oxygen use is at 4 L, was recently started on 2021-09-25. We'll continue heparin drip, duplex ultrasound ordered/pending, continue Decadron, continue oxygen supplementation, incentive spirometry encouraged, echocardiogram ordered/pending. 2) symptomatic COVID-19 infection Patient's had Covid since September 12, 2021. Has been managing at home except for recent ED visit on 09/25/2021 where patient was placed on Decadron and sent home on home O2 at 4 L via nasal cannula. Will not initiate remdesivir due to prolonged course of COVID-19 infection. Plan; as above, initiate Decadron, enhance COVID-19 droplet precautions ordered. 3) CAD status post stent Patient had STEMI with stent placed in 2017. Follows with independent sales representative in [place]. Plan; obtain echocardiogram as above, continue metoprolol, aspirin and statin. 4) tobacco abuse Cessation advised, nicotine patch ordered. DVT prophylaxis - not indicated, on therapeutic anticoagulation for #1. CODE STATUS: Full code Patient seen by Ed Holliday PA-C, under the supervision of Dr. Grullon. Documented by User: Dr. Zain Grullon MD 10/01/21 13:08 Objective Data Lab / Micro Data Result Diagrams: 10/01/21 06:50 10/01/21 06:50 Assessment & Plan Assessment/Plan (1) Pulmonary embolism: (2) COVID-19: (3) Hypoxia: Addt'l Comments This patient was seen in conjunction with Ed Holliday PA-C. I have independently interviewed and examined the patient and reviewed pertinent historical, laboratory, and other data. Please refer to Ed Holliday PA-C's note for details of this patient's presentation, findings, and recommendations. I have reviewed Ed Holliday PA-C's note and concur with documented findings. In brief, patient is a 65-year-old gentleman unvaccinated against COVID-19 with recent diagnosis of Covid he tested himself at home who presented to the emergency department with progressive shortness of breath. Found to have pulmonary embolism admitted to a monitored bed for further management Physical Examination: GENERAL: cooperative HEENT: Atraumatic; EYES; Anicteric, Normal Conjunctiva NECK; supple, normal thyroid, RESPIRATORY: Diminished to auscultation CARDIOVASCULAR: Regular S1 S2, GI: soft, normoactive bowel sounds, : No Renal angle tenderness; EXTREMITIES: No edema, no clubbing, MUSCULOSKELETAL: no muscle waisting NEURO: Awake; no lateralizing signs. SKIN: No Rash PSYCH; Flat affect Assessment: 1. Acute bilateral segmental pulmonary emboli secondary to Covid induced hypercoagulable state 2. COVID-19 infection 3. Dyslipidemia 4. Assessment hypertension 5 Recommendations: 1. I have discussed the results of my overview and impressions with the patient 2. Options for management were reviewed Charges/Coding Visit Charges Inpatient E&M: 95528 Subs Hosp L3
--- NOTE | 2021-10-01 14:25 | CASEMGMT ---
JETT SANZ Assessment: Face to Face with pt for initial transition planning/care coordination assessment. RN CM introduced self and role at [facility], pt voices understanding and consents to assessment. Patient sitting up in bed with O2 per [place] in place, in no apparent distress. DaughterZo, at bedside. Pt is A/O x4 and answers all questions appropriately at this time. Care providers, pharmacy, and demographics verified/updated. Admitting Dx: Pulmonary embolism PCP: Alex Rivero, [employer] [facility] Specialists: None Preferred Pharmacy: [facility] Insurance: [employer] Prescription Benefit: yes LW/HPOA: Patient has LW/HPOA. Patient made aware these forms are not on file at [facility] and may be brought in to be scanned into record. LNOK: DaughterZo Living Arrangements: Pt lives with son in 2 story house with 2 steps to enter with no railing. Patient reports independent with ADLs prior to hospitalization. 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 Social: smokes 1 ppd, daily ETOH use (beer/liquor, about 3-4 beers/day) Transportation: Pt drives self and denies concerns with transportation. DME/HHC/SNF: Patient recently set up with home oxygen per [facility] ER on 09/25/21, 4 LPM, supplied by [employer] Patient has oxygen concentrator but reports his only supplied portable tank is empty. Denies any other DME in home. Patient denies previous HHC or SNF stays. Pt states no concerns with going home at time of dc. Pt states no further concerns/needs. CM to follow. Advised pt to ask CM if any further question/concerns/needs arise, voices understanding. Pt Goal: home Plan: home
[2021-10-01] MEDS: Atorvastatin Calcium 40 MG Tablet PO (22:58)
[2021-10-01] MEDS: 0.9% Saline Lock 10 ML Syringe IV (23:04)
[2021-10-02] VITALS (7 sets, daily range): BP systolic 118–121; BP diastolic 57–63; PULSE 43–62; RESP 16–19; TEMP 36.1–36.5; O2SAT 86–95
[2021-10-02 07:02] LABS: Mean Corp Hgb Conc 34.2 g/dL (32-36); Mean Corpuscular Hgb 30.6 pg (27.0-32.0); Mean Corpuscular Volume 89.4 fL (80-94); Mean Platelet Vol. 12.2 fl (6.2-12.0); POSITIVE COUNT YES; POSITIVE DIFFERENTIAL YES; POSITIVE MORPHOLOGY YES; Platelet Count 217 K/mm3 (150-450); RBC Distribution Width CV 13.2 % (11.6-14.6); RBC Distribution Width SD 43.5 fl (35.1-43.9); Red Blood Count 4.25 M/mm3 (4.6-6.2); White Blood Count 17.9 K/mm3 (4.4-11.0)
[2021-10-02 07:04] LABS: Differential Indicated MANUAL DIFF
[2021-10-02 07:16] LABS: Partial Thromboplast Time 51.5 Seconds (24.1-36.2)
[2021-10-02] MEDS: Aspirin E.C. 81 MG Tablet PO (08:01)
[2021-10-02] MEDS: Acetaminophen 325 MG Tablet 650 MG PO (08:01)
[2021-10-02] MEDS: dexAMETHasone 4 MG Tablet 6 MG PO (08:01)
[2021-10-02] MEDS: Heparin Injection (Vial) 5,000 UNIT/ML VIAL IV (08:01)
[2021-10-02 08:59] LABS: Neutrophil-Segmented 63 % (47-70); Total Cells Counted 100 (MANUAL DIFF)
[2021-10-02 09:01] LABS: Lymphocyte 22 % (19-41); Monocyte 11 % (0-10); Myelocyte 4 % (0-0); Platelet Estimate ADEQUATE (ADEQ); Red Cell Morphology NORM C+C NORMAL (NORM C&C)
[2021-10-02 09:02] LABS: Absolute Lymphocyte Count 3.94 X10^3/uL (0.83-4.51); Absolute Neutrophil Count 11.3 X10^3/uL (2.0-7.7)
[2021-10-02] MEDS: APIXABAN 5 MG TABLET 10 MG PO (10:09)
[2021-10-02 10:41] LABS: Pathologist Review Reviewed
--- NOTE | 2021-10-02 11:04 | DCINST_ITS ---
Discharge Instructions Diet Discharge Diet: No restrictions Activity Discharge Activity: Return to Normal Activity Weight Bearing Status: Weight bearing as tolerated Dressing / Incision Call your doctor if you observe: Fever of 101 or Higher, Numbness or Tingling, Shortness of breath, Dizziness, Chest pain, Increased palpitations (irregular heartbeat) and Calf discomfort Follow Up Care Please Follow Up With: Primary care provider When: Within the next two weeks. Test Results: Test results from this visit will be discussed in further detail at your follow-up appointment, if applicable. Discharge Plan Admission Admit Date/Time: 09/30/21 15:23 Primary Reason for Your Visit: Shortness of breath Attending Provider: Zain Grullon Primary Care Provider: Alex Rivero NP Discharge Orders/Prescriptions Prescriptions: New Eliquis 5 mg tablet 5 mg PO BID Qty: 84 RF: 0 Continued atorvastatin 40 mg tablet 40 mg PO DAILY RF: 0 acetaminophen 500 mg Tablet 1,000 mg PO BID RF: 0 metoprolol tartrate 25 mg tablet 12.5 mg PO BID RF: 0 aspirin 81 mg Tablet,Delayed Release (Dr/Ec) 81 mg PO DAILY RF: 0 dexamethasone [Decadron] 6 mg tablet 6 mg PO DAILY 10 Days Qty: 10 RF: 0 ibuprofen 600 mg Tablet 600 mg PO BID PRN (Reason: Pain) RF: 0 Referrals / Follow Up: Alex Rivero NP, MAINTENANCE MECH[employer]IC SUPERVISOR-C [Primary Care Provider] - Within 2 Weeks Disposition Disposition (needs filled in before D/C Order can be placed): Home, Self Care
--- NOTE | 2021-10-02 11:19 | CASEMGMT ---
Addendum entered by Eloisa Mar 10/02/21 14:23: Per pt, [facility] told him it will take days to process his Eliquis and pt would like med sent to [facility] pharmacy at this time. Call to Aileen at [facility] pharmacy and she states she will transfer Eliquis to [facility] at this time. Aileen aware that prior auth obtained and 30 day free trial card to be applied. This RN CM to room to update daughter on oxygen and Eliquis, voices understanding. Pt/daughter voice no further questions/concerns/needs. Cristian RN CM Addendum entered by Eloisa Mar 10/02/21 12:27: Prior auth obtained and effective 10/02/21-10/02/22, . Call to [facility] to update that prior auth obtained and per pharmcist, pt's co-pay is $667.85. Pharmacist aware that pt has 30 day free trial card and co-pay card, voices understanding. Pt updated on all, voices understanding. Pt is awaiting e-tank and voices no further questions/concerns/needs. Cristian RN CM Addendum entered by Eloisa Mar 10/02/21 12:04: This RN CM to room to discuss home oxygen qualification with pt and pt provided Eliquis 30 day free trial and $10 co-pay card at this time with explanation. Pt aware to keep oxygen level greater than 89% and states has pulse ox at home. Pt aware that this RN CM to check coverage/co-pay. Pt voices no further questions/concerns/needs. Call to [facility] [place] and per pharmacist, Eliquis needs prior auth at this time. This RN CM to call and complete prior auth. Cristian RN CM Addendum entered by Eloisa Mar 10/02/21 11:22: Eliquis e-scribed to [facility] and this RN CM will follow for coverage/copay. Cristian RN CM Original Note: Pt had been sent home on 4L nc continuous home oxygen last week from ED per Michelle. Pt now qualifies for 5L w/ exertion but is ok on room air at rest per Jensen FRAUSTO. New order faxed to Michelle and Maggie updated that pt will need e-tank, voices understanding. Cristian RN CM
--- NOTE | 2021-10-02 14:42 | PCM.DC.SUM ---
Providers Date of Admission: 09/30/21 Primary Care Physician: Alex Rivero, [employer] [facility] Reason For Visit: PULMONARY EMBOLISM Diagnosis Discharge Diagnosis (1) Pulmonary embolism: Status: Acute Code(s): I26.99 - Other pulmonary embolism without acute cor pulmonale (2) COVID-19: Status: Acute Code(s): U07.1 - COVID-19 (3) Hypoxia: Status: Acute Code(s): R09.02 - Hypoxemia Medications at Discharge Home Medications acetaminophen 1,000 mg PO BID 09/25/21 aspirin 81 mg PO DAILY 09/25/21 atorvastatin 40 mg PO DAILY 09/25/21 dexamethasone [Decadron] 6 mg PO DAILY 10 Days #10 tab 09/25/21 metoprolol tartrate 12.5 mg PO BID 09/25/21 ibuprofen 600 mg PO BID PRN 09/30/21 apixaban [Eliquis] 5 mg PO BID #84 tab 10/02/21 Hospital Course Procedures 2-D Echocardiogram and Transthoracic echo Summary of Care Provided Minutes Spent on Discharge: 35 Hospital Course: Discharge planning: Patient to be discharged home when medically ready. 1) acute hypoxic respiratory failure secondary pulmonary emboli in the setting of recent COVID-19 infection On day of discharge patient was requiring 5 L of oxygen to sat at 92%. Patient's home oxygen prescription was updated. Echocardiogram was obtained throughout admission and demonstrated normal LV size, normal LV systolic function, and EF of 55% and pulmonary artery systolic pressure at 36 mmHg. On day of discharge patient was initiated on Eliquis 10 mg p.o. twice daily x7 days and then is to take 5 mg p.o. twice daily thereafter. 2) symptomatic COVID-19 infection Patient's had Covid since September 12, 2021. Quarantine was complete for this patient on 10/02/2021. Patient was given Decadron, however remdesivir was not initiated due to prolonged course of Covid. Home Decadron continued. 3) CAD status post stent Continue home metoprolol, aspirin and statin. 4) tobacco abuse Cessation advised. Patient seen by Ed Holliday PA-C, under the supervision of Dr. Grullon. Physical Exam Narrative Patient is a 65-year-old male comfortably resting in a chair, alert and orient x3. Patient reports improvement in her shortness of breath and admission. Denies development of any new symptoms overnight. Does not appear in acute distress. Const alert, oriented x3 and no apparent distress HEENT normocephalic, head/scalp atraumatic and hearing grossly normal bilaterally Eyes PERRL, EOMs intact bilaterally and conjunctivae normal Neck no lymphadenopathy, supple and no JVD Resp normal respiratory effort, no retractions and no use of accessory muscles Resp Narrative: Patient requiring 4 L of oxygen to sat at 90%. Auscultation: diminished lung sounds Cardio regular rate, regular rhythm, no murmurs and no JVD GI normal to inspection, nondistended, normoactive bowel sounds, soft to palpation and non-tender Extremity normal to inspection, full ROM and no clubbing, cyanosis or edema Skin no rashes or lesions noted, no wounds and skin turgor normal Neuro CN's II-XII intact bilaterally Psych affect normal Medical Records Data Medical Nutrition Assessment Dietitian: Malnutrition Criteria Met Start: 10/01/21 13:00 Freq: Status: Active Protocol: Document 10/01/21 13:00 (Rec: 10/01/21 13:00 [id number]) Nutrition Malnutrition Evidence of Malnutrition Exists Yes Malnutrition (severe): Acute Illness/Injury Evidenced By Suboptimal Energy Intake ( Severe),Weight Loss (Severe) Clinical Problem Acute Disease or Injury Related Malnutrition Etiology severe, acute malnutrition r/t inadequate energy intake w/ increased energy needs d/t COVID Signs/Symptoms as evidenced by unintentional wt loss of 39.9#/19% wt loss < 2 months, estimated PO intake meeting <75% of estimated energy needs > 2 weeks Status Active Problem Recommendation Dietitian Recommendations/Changes continue regular diet as tolerated; will add 4 oz ensure compact w/ meals for additional calories/protein if consumed. Weight / BMI Weight Weight: 173 lb 1.006 oz Body Mass Index (BMI) 24.8 ABG / Lab / Microbiology Data Result Diagrams: 10/02/21 06:18 10/01/21 06:50 Laboratory: Laboratory Results - last 24 hr 10/01/21 06:50: Diff Path Review Reviewed 10/02/21 06:18: APTT 51.5 H 10/02/21 06:18: WBC 17.9 H, RBC 4.25 L, Hgb 13.0, Hct 38.0 L, MCV 89.4, MCH 30.6, MCHC 34.2, RDW Std Deviation 43.5, RDW Coeff of Jimi 13.2, Plt Count 217, MPV 12.2 H, Neut % (Auto) Not Reportable, Absolute Neuts (auto) 11.3 H, Absolute Lymphs (auto) 3.94, Total Counted 100, Neutrophils % (Manual) 63, Lymphocytes % (Manual) 22, Monocytes % (Manual) 11 H, Myelocytes % 4 H, Diff Path Review May foll, Platelet Estimate ADEQUATE, RBC Morphology NORM C+C Microbiology: Microbiology 10/01/21 12:05 Nasal Secretion SARS-CoV-2 Antigen (Rapid) - Final D/C Instructions Discharge Diet: No restrictions Weight Bearing Status: Weight bearing as tolerated Call your doctor if you observe: Fever of 101 or Higher, Numbness or Tingling, Shortness of breath, Dizziness, Chest pain, Increased palpitations (irregular heartbeat) and Calf discomfort Please Follow Up With: Primary care provider When: Within the next two weeks. Meaningful Use Info Meaningful Use Diagnoses (Choose all that apply): VTE VTE Anticoag overlap given w/in hospital stay or rx'd at hi?: Yes Pt receive overlap for 5 days?: Yes Discharge Plan Admission Admit Date/Time: 09/30/21 15:23 Primary Reason for Your Visit: Shortness of breath Attending Provider: Zain Grullon Primary Care Provider: Alex Rivero NP Discharge Orders/Prescriptions Prescriptions: New Eliquis 5 mg tablet 5 mg PO BID Qty: 84 RF: 0 Continued atorvastatin 40 mg tablet 40 mg PO DAILY RF: 0 acetaminophen 500 mg Tablet 1,000 mg PO BID RF: 0 metoprolol tartrate 25 mg tablet 12.5 mg PO BID RF: 0 aspirin 81 mg Tablet,Delayed Release (Dr/Ec) 81 mg PO DAILY RF: 0 dexamethasone [Decadron] 6 mg tablet 6 mg PO DAILY 10 Days Qty: 10 RF: 0 ibuprofen 600 mg Tablet 600 mg PO BID PRN (Reason: Pain) RF: 0 Referrals / Follow Up: Alex Rivero NP, [facility] [Primary Care Provider] - Within 2 Weeks Disposition Disposition (needs filled in before D/C Order can be placed): Home, Self Care
[2021-10-03 10:12] LABS: Pathologist Review Reviewed
== END 2021-10-02 15:11 | disposition home or self-care (01) | DRG 177 ==
LOC: ED 13:31 → PCU 15:38
PROVIDERS: Internal Medicine; Physician Assistant; Admitting Provider Internal Medicine; Emergency Provider Emergency Medicine; PCP Nurse Practitioner Family; Visit Provider Internal Medicine
DX: U07.1 COVID-19 (principal); I26.99 Other pulmonary embolism without acute cor pulmonale; J96.01 Acute respiratory failure with hypoxia; J12.82 Pneumonia due to coronavirus disease 2019; E43 Unspecified severe protein-calorie malnutrition; D68.8 Other specified coagulation defects; I25.10 Atherosclerotic heart disease of native coronary artery without angina pectoris; I10 Essential (primary) hypertension; I25.2 Old myocardial infarction; E78.5 Hyperlipidemia, unspecified; R94.5 Abnormal results of liver function studies; F17.210 Nicotine dependence, cigarettes, uncomplicated; Z95.5 Presence of coronary angioplasty implant and graft; Z99.81 Dependence on supplemental oxygen; Z79.82 Long term (current) use of aspirin; Z79.01 Long term (current) use of anticoagulants; Z79.899 Other long term (current) drug therapy
CPT/HCPCS: 36415; 71275; 80053; 84484; 85025; 85610; 85730; 87426; 93005; 93306; 97162; 97166; 97802; 99251; 99285; Q9967; A4216; G0463; J1940

== ENCOUNTER 2021-10-26 12:16 | Outpatient (CLI) | payer OTHER, SELFPAY ==
[2021-10-26 12:52] VITALS: PULSE 57; PULSE 60; PULSE 84; PULSE 88; PULSE 90; PULSE 91; PULSE 94; PULSE 96; O2SAT 91; O2SAT 92; O2SAT 93; O2SAT 95
--- NOTE | 2021-10-26 13:47 | WT_ITS ---
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 Assistive device used: None Pre-test Oxygen Delivery Method Room Air Pulse Ox (%) 95 Pulse Rate (60-100 beats/min) 57 L Dyspnea Cristina Scale (0-10) 0 Exertion Cristina Scale (6-20) 6 1st minute Oxygen Delivery Method Room Air Pulse Ox (%) 93 Pulse Rate (60-100 beats/min) 84 2nd minute Oxygen Delivery Method Room Air Pulse Ox (%) 92 Pulse Rate (60-100 beats/min) 88 3rd minute Oxygen Delivery Method Room Air Pulse Ox (%) 92 Pulse Rate (60-100 beats/min) 96 4th minute Oxygen Delivery Method Room Air Pulse Ox (%) 92 Pulse Rate (60-100 beats/min) 91 5th minute Oxygen Delivery Method Room Air Pulse Ox (%) 92 Pulse Rate (60-100 beats/min) 94 6th minute Oxygen Delivery Method Room Air Pulse Ox (%) 91 Pulse Rate (60-100 beats/min) 90 Dyspnea Cristina Scale (0-10) 2 Exertion Cristina Scale (6-20) 12 Post-test Oxygen Delivery Method Room Air Pulse Ox (%) 95 Pulse Rate (60-100 beats/min) 60 Full Laps Walked 18 Partial Lap, Number of Tiles Walked 0 Total Distance Walked (ft) 1062 Interpretation Interpretation: The patient was able to ambulate 1062 feet over the course of 6 minutes on room air with no assistive devices or breaks. The patient did experience significant desaturation from a baseline of 95% to as low as 91%. No significant tachycardia was noted. These findings are consistent with a respiratory limitation exercise tolerance Recommendations Recommendations: No supplemental oxygen is indicated at this time. However, patient will need to be followed closely given level of desaturation
== END 2021-10-26 23:59 | disposition short-term general hospital (02) ==
LOC: PSN 12:18
PROVIDERS: PCP Nurse Practitioner Family; Referring Provider Nurse Practitioner Family; Visit Provider Nurse Practitioner Family
DX: I25.10 Atherosclerotic heart disease of native coronary artery without angina pectoris (principal); I26.99 Other pulmonary embolism without acute cor pulmonale; R06.09 Other forms of dyspnea; R09.02 Hypoxemia
CPT/HCPCS: 94618

== ENCOUNTER 2021-10-30 10:41 | Outpatient (CLI) | payer OTHER, SELFPAY ==
--- NOTE | 2021-10-30 10:52 | RAD_ITS ---
STUDY: X-RAY CHEST REASON FOR EXAM: Male, 65 years old. POST COVID CHRONIC DYSPNEA TECHNIQUE: PA and lateral views of the chest. COMPARISON: Comparison is made with prior study dated 09/25/2021 FINDINGS: Residual pulmonary infiltrates seen in both lungs worse in the left lower lobe. Improved aeration of the right upper lobe infiltrate. There is no demonstrated pleural abnormality. Normal size heart. Normal mediastinum and graciela. Normal visualized pulmonary arteries. Normal visualized aortic arch and descending thoracic aorta. Normal visualized thoracic spine. Normal visualized ribs, clavicles, and shoulders. There is no demonstrated abnormality of the visualized soft tissue structures of the upper abdomen. RAD/Chest PA and Lateral IMPRESSION: Persistent infiltrates persist worse in the left lower lobe although there has been improved aeration of the right upper lobe. Electronically Signed: Glynn Park MD at 15:23 EST ,
--- NOTE | 2021-10-31 07:07 | PFT ---
INTRODUCTION: The patient is a 65-year-old male that presents for pulmonary function studies secondary to a diagnosis of PE. Respiratory therapy reported good patient effort. Bronchodilators were used during testing. INTERPRETATION: Forced expiration spirometry demonstrates no evidence of a large airways obstructive ventilatory defect. There was no significant response to aerosolized bronchodilators. Body plethysmography was performed and revealed a decreased TLC to 2.55 L, 39% of predicted, indicative of a severe restrictive ventilatory impairment. Diffusing capacity by single breath CO is moderately reduced at 64% of predicted. IMPRESSION: Severe restrictive ventilatory impairment with moderate reduction in diffusing capacity.
== END 2021-10-30 23:59 | disposition short-term general hospital (02) ==
LOC: PSN 10:42
PROVIDERS: PCP Nurse Practitioner Family; Referring Provider Nurse Practitioner Family; Visit Provider Nurse Practitioner Family
DX: I26.99 Other pulmonary embolism without acute cor pulmonale (principal); U09.9 Post COVID-19 condition, unspecified
CPT/HCPCS: 71046; 94060; 94726; 94729

== ENCOUNTER → 2022-11-05 | Outpatient (REF) | payer SELFPAY | LOC: EDREF 18:55 | PROVIDERS: PCP Nurse Practitioner Family | DX: R69 Illness, unspecified (principal) ==